=== PATIENT | male | born 1980 | race Caucasian/White ===

== ENCOUNTER 2020-12-25 23:30 | Emergency (ER) | payer BC ==
[~2020-12-25] VITALS: Ht 165.1 cm; Wt 70.5 kg
[2020-12-25] MEDS ORDERED: KETOROLAC 15 MG/ML VIAL. IVP ONE (23:45)
[2020-12-25] MEDS ORDERED: MUPIROCIN 2 % TOPICAL CREAM 30GM TUBE. TP ONE (23:45)
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
[2020-12-26] MEDS ORDERED: ONDANSETRON PF 4 MG/2 ML VIAL. IVP ONE (00:30)
[2020-12-26] MEDS ORDERED: DIPH,PERTUSS(ACELL),TET VAC/PF 0.5 ML SYRINGE. VAX IM ONE (00:30)
[2020-12-26] MEDS ORDERED: ORPH100T PO (00:36)
[2020-12-26] MEDS ORDERED: MUPI22OI2 TP (00:36)
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
[2020-12-26] MEDS ORDERED: ONDA4TAB12 PO (01:04)
[2020-12-26 01:25] VITALS: BP 125/79
== END 2020-12-26 01:35 | disposition home or self-care (01) ==
LOC: ER 23:30
DX: S40.811A Abrasion of right upper arm, initial encounter (principal); S40.211A Abrasion of right shoulder, initial encounter; S70.211A Abrasion, right hip, initial encounter; S80.811A Abrasion, right lower leg, initial encounter; S60.511A Abrasion of right hand, initial encounter; S00.81XA Abrasion of other part of head, initial encounter; R11.2 Nausea with vomiting, unspecified; F10.129 Alcohol abuse with intoxication, unspecified; Y90.9 Presence of alcohol in blood, level not specified; V00.148A Other scooter (nonmotorized) accident, initial encounter; Y93.89 Activity, other specified; Y92.89 Other specified places as the place of occurrence of the external cause; Y99.8 Other external cause status
CPT/HCPCS: 70450; 72125; 73130; 90471; 90715; 96374; 99285; J2405